=== PATIENT | male | born 1970 | race Caucasian/White ===

== ENCOUNTER 2020-07-03 07:55 | Emergency (ER) | payer MEDICAID ==
[~2020-07-03] VITALS: Ht 172 cm; Wt 127.0 kg
[~2020-07-03 07:55] MED LIST: ACHD5005 PO; AMOX500C2 PO; AZIT-21 PO; CYCL10TA9 PO; PRD20T PO
--- NOTE | 2020-07-03 08:52 | ED Back Pain ---
General Chief Complaint: Back Problems Stated Complaint: LOWER BACK PAIN, BI LATERAL THIGH NUMBNESS/PAIN Nursing Triage Note: PT PRESENTS TO ED FOR LOW BACK PAIN/NUMBNESS AND NUMBNESS IN UPPER THIGHS THAT HAS PROGRESSIVELY GOTTEN WORSE SINCE FALLING DOWN A FLIGHT OF STAIRS IN MARCH. PT REPORTS HE HAS NOT BEEN SEEN BY ANYONE/PCP FOR THIS COMPLAINT. Nursing Sepsis Screen: No Definite Risk Source of Information: Patient Exam Limitations: No Limitations History of Present Illness Date Seen by Provider: Jul 03, 2020 Time Seen by Provider: 08:35 Initial Comments Here with report of low back pain with numbness radiating to the anterior lateral thighs bilateral. States this occurs after standing for long periods and resolves when he stretches his legs. Woke up with increased back pain this morning. Does have to stand quite a bit. States in March he fell down some stairs and landed on his low back. He did have bruising at that time that has resolved. Does have history of sciatica in the past. Denies bowel or bladder incontinence. Denies fever chills. Denies weakness of his legs. He has started taking Naprosyn 500 mg p.o. with first dose this morning. Timing/Duration: 1 Week, Changing Over Time Severity: Moderate Pain/Injury Location: Back Radiation: Buttocks, Upper Legs Modifying Factors: Worse With Movement; Improves With Rest Associated Symptoms: No muscle spasms, No weakness; numbness in legs/feet, lower back pain; No loss of bladder control, No loss of bowel control Allergies and Home Medications Allergies Coded Allergies: No Known Drug Allergies (Unverified , 01/08/10) Patient Home Medication List Home Medication List Reviewed: Yes Review of Systems Constitutional: see HPI; No chills, No fever Respiratory: no symptoms reported Cardiovascular: no symptoms reported Musculoskeletal: see HPI, back pain, muscle pain Skin: no symptoms reported Psychiatric/Neurological: See HPI Past [id number] Hx Past Med/Social Hx: Reviewed Nursing Past Med/Soc Hx Patient Social History Alcohol Use: Occasionally Uses Recreational Drug Use: No Smoking Status: Never a Smoker Recent Foreign Travel: No Contact w/Someone Who Travel: No Recent Infectious Disease Expo: No Recent Hopitalizations: No Physical Abuse: No Sexual Abuse: No Mistreated: No Fear: No Immunizations Up To Date Date of Influenza Vaccine: Jun 11, 2011 Seasonal Allergies Seasonal Allergies: No Past Medical History Surgeries: Yes Appendectomy Respiratory: No Cardiac: No Neurological: No Genitourinary: No Gastrointestinal: No Musculoskeletal: No HEENT: No Cancer: No Psychosocial: No Integumentary: No Blood Disorders: No Family Medical History Reviewed Nursing Family Hx No Pertinent Family Hx Physical Exam Vital Signs Vital Signs - First Documented 07/03/20 08:05 Temp 35.8 Pulse 80 Resp 16 B/P (MAP) 135/98 (110) Pulse Ox 97 Capillary Refill : Less Than 3 Seconds Height, Weight, BMI Height: 5'9.00" Weight: 298lbs. oz. 135.873430wj; 42.00 BMI Method:Stated General Appearance: No Apparent Distress, WD/WN, Obese Cardiovascular: Regular Rate, Rhythm, No Murmur Respiratory: Lungs Clear, Normal Breath Sounds Gastrointestinal: Non Tender, Soft Back: Muscle Spasm; No Vertebral Tenderness Extremity: Normal Range of Motion, Non Tender, Other (Good distal strength and no sensory loss currently) Neurologic/Psychiatric: Alert, Oriented x3 Skin: Normal Color, Warm/Dry Progress/Results/Core Measures Results/Orders Vital Signs/I&O 07/03/20 08:05 Temp 35.8 Pulse 80 Resp 16 B/P (MAP) 135/98 (110) Pulse Ox 97 Blood Pressure Mean: 110 Progress Progress Note : Progress Note Seen and evaluated. Discussed various options including the option of CT scan of the lumbar spine. He would like to try rest for a few days and follow-up wi th his doctor. This is reasonable. Discharged home with return precautions. Patient verbalized understanding of instructions and agreement with plan. Departure Impression Primary Impression: Lumbar radiculopathy Disposition: 01 HOME, SELF-CARE Condition: Stable Departure-Patient Inst. Decision time for Depature: 08:51 Referrals: NO,LOCAL PHYSICIAN (PCP) Primary Care Physician SORAYA GOLDSMITH (Family) Primary Care Physician Patient Instructions: Radiculopathy (DC), Low Back Pain (DC) Add. Discharge Instructions: All discharge instructions reviewed with patient and/or family. Voiced understanding. Follow-up with your doctor in a few days for recheck. Return for worse pain, weakness, numbness, difficulty with walking or going to the bathroom, fever or other concerns as needed. Take medications as directed. Continue Naprosyn 500 mg twice daily for the next 3 to 4 days and then as needed. You may also take Tylenol/acetaminophen 1000 mg every 6-8 hours as needed for pain. Scripts Prednisone (Prednisone) 20 Mg Tab 40 MG PO DAILY, #14 TAB 0 Refills Prov: ANT VASQUEZ MD 07/03/20 Cyclobenzaprine HCl (Cyclobenzaprine HCl) 10 Mg Tablet 10 MG PO Q8H PRN for SPASMS, #15 TAB 0 Refills Prov: ANT VASQUEZ MD 07/03/20 Work/School Note: Work Release Form Date Seen in the Emergency Department: Jul 03, 2020 Return to Work: Jul 05, 2020 Restrictions: No Restrictions ANT VASQUEZ MD Jul 03, 2020 08:52
[2020-07-03] MEDS ORDERED: PRD20T PO (08:53)
[2020-07-03] MEDS ORDERED: CYCL10TA9 PO (08:53)
[2020-07-03 09:11] VITALS: BP 132/86
== END 2020-07-03 09:11 | disposition home or self-care (01) ==
LOC: EDUNIT# 07:55 → ER 07:58
DX: M54.16 Radiculopathy, lumbar region (principal); E66.9 Obesity, unspecified; Z68.41 Body mass index [BMI] 40.0-44.9, adult
CPT/HCPCS: 99281

== ENCOUNTER 2021-05-08 05:36 | Outpatient (CLI) | payer MEDICAID ==
[~2021-05-08] VITALS: Ht 172.7 cm; Wt 139.8 kg
== END 2021-05-09 08:15 ==
LOC: PREOP 05:36
PROVIDERS: ATTEND Surgery
DX: Z01.818 Encounter for other preprocedural examination (principal)